=== PATIENT | female | born 1965 | race Two or more races ===

== ENCOUNTER 2016-09-18 23:08 | Emergency (ER) | payer OTHER ==
[~2016-09-18] VITALS: Ht 167.6 cm; Wt 117.9 kg
[2016-09-18] MEDS ORDERED: HYDROMORPHONE 1 MG/1 ML DISP.SYRIN IV ONE (23:30)
[2016-09-18] MEDS ORDERED: ONDANSETRON HCL/PF 4 MG/2 ML VIAL IV ONE (23:30)
--- NOTE | 2016-09-18 23:53 | NUR ---
PT BIB [facility] AND TAKEN TO ROOM #4 WITH A C/O RLE PAIN/INJURY S/P FALL. PT IS ON THE MONITOR AND CONTINUOUS PULSE OX. VSS.
[2016-09-18] MEDS ORDERED: HYDROMORPHONE 1 MG/1 ML DISP.SYRIN ONE (23:54)
[2016-09-18] MEDS ORDERED: ONDANSETRON HCL/PF 4 MG/2 ML VIAL ONE (23:55)
--- NOTE | 2016-09-19 00:09 | NUR ---
XRAY IN PROGRESS AT THE BEDSIDE.
[2016-09-19] MEDS ORDERED: ETOMIDATE 2 MG/ML VIAL ONE (00:23)
--- NOTE | 2016-09-19 00:26 | NUR ---
CONSENT SIGNED FOR MODERATE SEDATION.
[2016-09-19] MEDS ORDERED: IV SET PRIMARY 1 EA INFUS.SET MC ONE (01:02)
[2016-09-19] MEDS ORDERED: IV NS 0.9% 1,000 ML ONE (01:02)
--- NOTE | 2016-09-19 01:07 | NUR ---
MODERATE SEDATION STARTED.
--- NOTE | 2016-09-19 01:10 | NUR ---
MODERATE SEDATION FINISHED.
[2016-09-19] MEDS ORDERED: ONDANSETRON HCL/PF 4 MG/2 ML VIAL ONE (01:14)
--- NOTE | 2016-09-19 01:15 | NUR ---
PT IS BACK TO BASELINE. VSS. AA & OX 4.
[2016-09-19] MEDS ORDERED: METOCLOPRAMIDE HCL 10 MG/2 ML VIAL ONE (01:17)
--- NOTE | 2016-09-19 01:19 | NUR ---
PT FEELS NAUSEATED. DR. HOWE IS AWARE. NEW ORDER GIVEN.
--- NOTE | 2016-09-19 01:20 | NUR ---
PT VOMITTED APPROX 1L EMESIS NOTED.
--- NOTE | 2016-09-19 01:22 | NUR ---
PT STATED THAT SHE FEELS MUCH BETTER. VSS. PT IS ON THE MONITOR AND CONTINUOUS PULSE OX. RESP EVEN AND UNLABORED. PT'S IS AT THE BEDSIDE.
[2016-09-19] MEDS ORDERED: ETOMIDATE 2 MG/ML VIAL IV ONE (01:30)
[2016-09-19] MEDS ORDERED: ONDANSETRON HCL/PF 4 MG/2 ML VIAL IV ONE (01:30)
[2016-09-19] MEDS ORDERED: METOCLOPRAMIDE HCL 10 MG/2 ML VIAL IV ONE (01:30)
--- NOTE | 2016-09-19 02:05 | NUR ---
PT APPEARS TO BE RESTING COMFORTABLY WITH NO S/S OF PAIN OR DISTRESS.
[2016-09-19] MEDS ORDERED: HYDROCODONE/APAP 10/325MG 1 EA TABLET ONE (03:05)
--- NOTE | 2016-09-19 03:10 | NUR ---
IV removed. Catheter intact and site benign. Pressure and 4x4 applied to site. No bleeding noted.
--- NOTE | 2016-09-19 03:12 | NUR ---
PT REC'D MEDICATION ORDERED. Crutches dispensed. Pt instructed on proper use of crutches. Patient able to demonstrate correct use of crutches.
--- NOTE | 2016-09-19 03:18 | NUR ---
Patient discharged to home in stable condition. Written and verbal after care instructions given. Patient verbalizes understanding of instruction AND RX. PT LEFT VIA WC. PT'S IS DRIVING PT HOME. PT WAS INSTRUCTED NOT TO DRIVE. VSS.
[2016-09-19 03:25] VITALS: BP 149/87
[2016-09-19] MEDS ORDERED: HYDROCODONE/APAP 10/325MG 1 EA TABLET PO ONE (03:30)
== END 2016-09-19 03:26 | disposition home or self-care (01) ==
LOC: ER 23:10
DX: S82.851A Displaced trimalleolar fracture of right lower leg, initial encounter for closed fracture (principal); Z98.890 Other specified postprocedural states; W10.9XXA Fall (on) (from) unspecified stairs and steps, initial encounter; Y93.89 Activity, other specified; Y92.89 Other specified places as the place of occurrence of the external cause; Y99.9 Unspecified external cause status
CPT/HCPCS: 27818; 73590; 73600; 73610; 73630; 96374; 96375; 96376; 99152; 99285; A4606 ×2; J1170; J2405 ×2; J2765; J3490; J7030; Z7610 ×2